=== PATIENT | female | born 1960 | race Caucasian/White ===

== ENCOUNTER → 2017-09-25 | Outpatient (REF) | payer OTHER | LOC: M SFHCWAGY 16:33 | DX: Z12.4 Encounter for screening for malignant neoplasm of cervix (principal) ==

== ENCOUNTER → 2018-07-12 | Outpatient (REF) | payer OTHER | LOC: M SFHCLERA 17:54 | PROVIDERS: ATTEND Nurse Practitioner Family | DX: R39.9 Unspecified symptoms and signs involving the genitourinary system (principal) ==

== ENCOUNTER 2018-09-04 06:42 | Day surgery (SDC) | payer OTHER ==
[~2018-09-04] VITALS: Ht 167.6 cm; Wt 83.9 kg
[~2018-09-04 06:42] MED LIST: AMLO10TA5 PO; LEVO25TA5 PO; PARO25TA PO; PROP40TA62 PO; THYR30TA PO; VITATAB73 PO; dandelion root PO
[2018-09-04] MEDS ORDERED: fentaNYL 100 MCG/2 ML INJECTION (J3010) As Ordered ONE (06:48)
[2018-09-04] MEDS ORDERED: MIDAZOLAM INJ 2 MG/2 ML VIAL (J2250) As Ordered ONE (06:49)
[2018-09-04] MEDS ORDERED: LIDOCAINE 2% W/EPIN INJ 20ML **PRES FREE As Ordered ONE (06:49)
[2018-09-04] MEDS ORDERED: SODIUM BICARBONATE 8.4% INJ 50MEQ 50 ML VIAL As Ordered ONE (06:50)
[2018-09-04] MEDS ORDERED: CIPROFLOXACIN 0.3% OPHTH OINTMENT As Ordered ONE (06:50)
[2018-09-04] MEDS ORDERED: ONDANSETRON 4MG/2ML VIAL (J2405) As Ordered ONE (06:56)
[2018-09-04] MEDS ORDERED: LIDOCAINE 3.5 % 1ML OPHTH TOPICAL GEL OU ONE (07:00)
[2018-09-04] MEDS ORDERED: POVIDONE-IODINE 5% OPHTH PREP SOL 30ML As Ordered ONE (07:37)
[2018-09-04] MEDS ORDERED: PROPOFOL 200 MG/20 ML VIAL As Ordered ONE (07:53)
[2018-09-04 10:00] VITALS: BP 145/76
--- NOTE | 2018-09-04 13:58 | RO ---
DATE OF SURGERY: 09/04/2018 PREOPERATIVE DIAGNOSIS: Bilateral dermatochalasis. POSTOPERATIVE DIAGNOSIS: Bilateral dermatochalasis. PROCEDURE: Bilateral blepharoplasty, upper lids. SURGEON: Kathie Mccullough MD YARD CALLER: None. COMPLICATIONS: None. DESCRIPTION OF PROCEDURE: Procedure in detail: The patient was brought to the operating room and laid in supine position. The eye was prepped and draped in a sterile fashion for upper eyelid surgery. Upper face was prepared in its entirety. Both upper lids were then marked with a sterile marker along the lines of intended skin excisions, following which both upper lids were infiltrated with 2% lidocaine with 1:100,000 epinephrine. The patient was observed for a few minutes, following which electrocautery was used to dissect and remove the premarked skin from the right upper lid. Deeper dissection was then carried out with the help of the electrocautery while hemostasis was obtained with the same. Medial and lateral fat pads were identified and then cauterized at the base and removed. 6-0 Vicryl suture was used to bring the deeper layers together, followed by closure of the skin using 6-0 nylon suture. Exactly the same procedure was repeated for the left upper lid. At the end of the case, ice packs were applied, and the patient was returned to the recovery room after Ciloxan ointment was placed. The usual instructions were given for postoperative care in the recovery room.
== END 2018-09-04 10:10 | disposition home or self-care (01) ==
LOC: M SDC 06:42
PROVIDERS: ATTEND Ophthalmology
DX: H02.831 Dermatochalasis of right upper eyelid (principal); H02.834 Dermatochalasis of left upper eyelid; I10 Essential (primary) hypertension; E03.9 Hypothyroidism, unspecified; K58.8 Other irritable bowel syndrome; F32.9 Major depressive disorder, single episode, unspecified; Z87.891 Personal history of nicotine dependence; Z79.899 Other long term (current) drug therapy; Z88.5 Allergy status to narcotic agent
CPT/HCPCS: 15822; 88302; J2250; J2405; J3010

== ENCOUNTER → 2018-09-26 | Outpatient (REF) | payer OTHER | LOC: M SFHCWAGY 14:27 | PROVIDERS: ATTEND Nurse Practitioner Women's Health | DX: Z12.4 Encounter for screening for malignant neoplasm of cervix (principal) ==

== ENCOUNTER → 2019-10-13 | Outpatient (REF) | payer OTHER ==
[~2019-10-13] MED LIST changes: -PARO25TA PO; +PARO25TA8 PO
== END ==
LOC: M SFHCWAGY 17:53
PROVIDERS: ATTEND Nurse Practitioner Women's Health
DX: Z12.4 Encounter for screening for malignant neoplasm of cervix (principal); Z01.419 Encounter for gynecological examination (general) (routine) without abnormal findings

== ENCOUNTER → 2020-01-22 | Outpatient (CLI) | payer OTHER ==
[~2020-01-22] MED LIST changes: -AMLO10TA5 PO; +AMLO1TAB25 PO
--- NOTE | 2020-01-22 14:59 | RADONC.CN ---
Radiation Oncology Hx/Consult Radiation Oncology Consult Date of Service: Jan 22, 2020 Pt Identifier Kimberly Rojas is a 59 year old female with a history of pT1cN0(sn)M0 ER/NM+ HER2- Gr 3 IDC of the right lower inner quadrant breast. She underwent lumpectomy and SLNB on 12/25/19. She is seen today for consideration of adjuvant RT. Diagnosis/Treatment History Oncologic History September 2019 noted lump in right breast on self-exam 12/08/19 [facility] mammogram and US showing 4:00 right breast lesion 1.4 cm. Biopsy showing IDC ER/NM+ HER2- 12/25/[address] Ferrari pT1cN0(sn)M0 stage IA, margins negative, closest 2.5mm inferior Oncotype score 17 Interval History Feels well, works as a teacher. No pain in the right breast, no swelling in the right arm. No impaired ROM. Appetite good, weight and energy levels stable. Has a special needs child. Stressed about the possibility of being out of work for treatment. Past Medical History: Menses @ [age] @ 1st No OCP or HRT No IVF Post menopausal @ 54 Tubal ligation Past Surgical History: As above Family History: Paternal aunt with breast cancer Social History: Former smoker 30+ pk year Drinks 1-2 alcoholic beverags per week Exposed to lead and other petroleum products through husbands occupation Allergies / Meds Allergies: Coded Allergies: codeine (Verified Allergy, Unknown, hives, 08/28/18) morphine (Verified Allergy, Unknown, hives, 08/28/18) Home Meds Reported Medications Vitamin B Complex (Vitamin B Complex) 1 Each Tablet, 1 TAB PO DAILY, TAB 08/28/18 [dandelion root] No Conflict Check, 1 TAB PO BID 08/28/18 Thyroid (Nature-Throid) 32.5 Mg Tablet, 60 MG PO DAILY, TAB 08/28/18 Amlodipine Besylate (Amlodipine Besylate) 10 Mg Tablet, 10 MG PO DAILY, TAB 08/28/18 Paroxetine HCl (Paroxetine ER) 25 Mg Tab.er.24h, 25 MG PO DAILY, TAB 08/28/18 Levothyroxine Sodium (LEVOTHYROXINE SODIUM) 25 Mcg Tablet, 25 MCG PO DAILY, TAB 08/28/18 Propranolol HCl (Propranolol HCl) 40 Mg Tablet, 40 MG PO DAILY 08/28/18 Review of Systems Constitutional: Denies: Chills, Fever, Night Sweats Eyes: Denies: Pain, Vision change HEENT: Denies: Head Aches, Dysphagia, Sore Throat Skin: Denies: Rash, Lesions, Bruising Pulmonary: Denies: Dyspnea, Cough Cardiovascular: Denies: Chest Pain, Palpitations, Edema Breast: Denies: New Breast Lumps / Masses, Nipple Retraction, Nipple Discharge, Breast Skin Changes, Breast Pain or Tenderness, Other Breast Complaints Gastrointestinal: Denies: Nausea, Vomiting, Abdominal Pain, Diarrhea Genitourinary: Denies: Dysuria, Frequency, Incontinence Hematologic: Denies: Bruising, Petecchia, Enlarged Lymph Nodes Musculoskeletal: Denies: Neck pain, Back pain Neurological: Denies: Weakness, Numbness, Incoordination Psych: Reports: Mood Normal; Denies: Memory Issues, Thoughts of Self Harm Vital Signs Ht 66" Wt 181lb BMI 29 T 98 P 62 RR 18 BP 130/72 O2 96% Pain 0 Fatigue 1 General Exam: Positive: Alert, Cooperative, No Acute Distress Eye Exam: Positive: PERRLA, EOMI ENT EXAM: Positive: Atraumatic Neck Exam: Positive: Supple; Negative: Lymphadenopathy Chest Exam: Positive: Clear to auscultation, Normal air movement Heart Exam: Positive: Rate Normal, Regular Rhythm Breast Exam: Positive: Symmetric Bilaterally, Other Breast Findings (Well healed right infra-areolar lumpectomy incision. Palpable seroma behind incision. No axillary adenopathy BL.); Negative: Lumps or Masses, Nipple Retraction, Nipple Discharge, Skin Changes Abdomen Exam: Positive: Normal bowel sounds, Soft; Negative: Tenderness Extremity Exam: Negative: Edema Skin Exam: Positive: Nl turgor and temperature Neuro Exam: Positive: Normal Gait, Normal Speech, Cranial Nerves 3-12 NL Psych Exam: Positive: Mental status NL, Mood NL; Negative: Anxiety Diagnostic and Laboratory Diagnostic Review Radiologic images, relevant labs and pathology reports were personally reviewed and discussed with Ms. Rojas. Assessment and Plan Impression Ms. Rojas is a 59 year old female with a history of pT1cN0(sn)M0 ER/NM+ HER2- Gr 3 IDC of the right lower inner quadrant breast. She underwent lumpectomy and SLNB on 12/25/19. She is seen today for consideration of adjuvant RT. Stage pT1cN0(sn)M0 ER/NM+ HER2- Gr 3 stage IA right breast cancer Performance Status ECOG 0 Plan We had an extensive discussion with Ms. Rojas regarding the diagnosis at hand and available therapeutic options. She is doing well postoperatively. She prioritizes minimal disruption in her home/work schedules. She meets all APBI acceptability criteria based on her pathology. I discussed partial breast radiation to the tumor bed with margin and offered her 2 schedules, 40 Gy in 15 fractions as per [facility] LOW, versus 26 Gy in 5 fractions as per the recent FAST FORWARD study. I explained that the 15 fraction regimen has more mature follow up but that all initial toxicity and 5 year oncologic outcomes are similar between the two based on FA[facility] FORWARD which compared them [id number]. She has selected the 26 Gy in 5 fraction regimen, which I think is an excellent choice. I will treat her supine, most likely using photons (electrons a less likely possibility), and a daily kV x-ray pair for localization. We discussed the logistics of receiving radiation therapy in detail including the need for a 1-time planning session. After discussing the risks, benefits and alternatives to radiation therapy, Ms. Rojas was amenable to pursuing radiotherapy. All questions were answered to the patient's satisfaction. We instructed the patient that if there were any questions,concerns or changes in clinical status in the interim to contact us. Recommendations Partial breast radiation 26 Gy in 5 fractions per FAST FORWARD (Lancet 2019) Simulation in the coming week ADRIANE DE LA ROSA MD Jan 22, 2020 14:58
== END ==
LOC: M ONCR 12:55
PROVIDERS: ATTEND General Practice
DX: C50.311 Malignant neoplasm of lower-inner quadrant of right female breast (principal)

== ENCOUNTER → 2020-01-29 | Outpatient (CLI) | payer OTHER ==
--- NOTE | 2020-02-06 15:23 | DEXA ---
AP SPINE L1 - L4 1.412 1.8 2.9 LT FEMUR TOTAL 1.260 2.0 2.9 LT NECK 1.184 1.1 2.3 RT FEMUR TOTAL Right hip replaced. RT NECK TOTAL BODY TOTAL OTHER COMMENTS: Normal bone densitometry of the spine. Normal bone densitometry of the left hip. FOLLOW-UP: Recommendation for the next bone density exam: 5 years. TALI
== END ==
LOC: M WHC 12:59
PROVIDERS: ATTEND Internal Medicine Hematology & Oncology
DX: C50.311 Malignant neoplasm of lower-inner quadrant of right female breast (principal)

== ENCOUNTER 2020-02-13 15:51 | Outpatient (RCR) | payer OTHER | END 2020-02-14 | LOC: M ONCR 15:51 | PROVIDERS: ATTEND General Practice | DX: C50.311 Malignant neoplasm of lower-inner quadrant of right female breast (principal) ==

== ENCOUNTER → 2020-07-28 | Outpatient (CLI) | payer OTHER ==
[~2020-07-28] MED LIST changes: +BLAC1CAP2 PO; +CALC-362 PO; +CVS1CAP2 PO; +FISH1000 PO; +MULTCHW12 PO
--- NOTE | 2020-07-28 16:07 | RADONC ---
Radiation Oncology Hx/FUP Radiation Oncology Hx/FUP Date of Service: Jul 28, 2020 Pt Identifier Kimberly Rojas is a 59 year old female seen for a followup visit today at the department of radiation oncology for a history of pT1cN0(sn)M0 ER/OH+ HER2- Gr 3 IDC of the right lower inner quadrant breast. She underwent lumpectomy and SLNB on 12/25/19. She completed adjuvant PBI 26 Gy in 5 fractions on 02/13/20. She has been taking an AI since then. Diagnosis/Treatment History Oncologic History September 2019 noted lump in right breast on self-exam 12/08/19 BL mammogram and US showing 4:00 right breast lesion 1.4 cm. Biopsy showing IDC ER/OH+ HER2- 12/25/[address] Ferrari pT1cN0(sn)M0 stage IA, margins negative, closest 2.5mm inferior Oncotype score 17 02/09/20-02/13/20 Adjuvant PBI 26 Gy in 5 fractions (FAST FORWARD regimen) 02/15/20- AI first letrozole, then exemestane Interval History Kimberly reports she started letrozole and had a bad reaction, made her tired and mood changes, she was switched to exemestane and this has been much more tolerable. She has preserved energy and appetite. No pain or tenderness in the right breast. She has no skin concerns. She has mammograms scheduled for December 2020. She reports that she had no discernible skin reaction after completing RT. Current Therapy Exemestane Stage pT1cN0(sn)M0 ER/OH+ HER2- Gr 3 stage IA right breast cancer Social History: Former smoker 30+ pk year Drinks 1-2 alcoholic beverags per week Exposed to lead and other petroleum products through husbands occupation Allergies / Meds Allergies: Coded Allergies: codeine (Verified Allergy, Unknown, hives, 08/28/18) morphine (Verified Allergy, Unknown, hives, 08/28/18) Home Meds Reported Medications Elderberry Fruit and Flower (Black Elderberry 575 mg Cap) 1 Each Capsule, 1 CAP PO, CAP 07/28/20 Calcium Carbonate/Vitamin D3 (Calcium 500 mg Chewable Tablet) 1 Each Tab.chew, 500 MG PO, CHW 07/28/20 Lactobacillus Combo No.10 (Probiotic) 1 Each Capsule, 1 TAB PO DAILY for 30 Days, #30 TAB 07/28/20 Folic Acid/Multivit-Min/Lutein (Multi-Vitamin Gummies) 1 Each Tab.chew, 1 CHW PO 07/28/20 [place]-3 Fatty Acids/Fish Oil (Fish Oil 1,000 mg Capsule) 1 Each Capsule, 1 CAP PO DAILY for 30 Days, #30 CAP 07/28/20 Amlodipine Besylate (Amlodipine Besylate) 10 Mg Tablet, 10 MG PO DAILY, TAB 08/28/18 Paroxetine HCl (Paroxetine ER) 25 Mg Tab.er.24h, 25 MG PO DAILY, TAB 08/28/18 Levothyroxine Sodium (LEVOTHYROXINE SODIUM) 25 Mcg Tablet, 25 MCG PO DAILY, TAB 08/28/18 Propranolol HCl (Propranolol HCl) 40 Mg Tablet, 40 MG PO DAILY 08/28/18 Discontinued Reported Medications Vitamin B Complex (Vitamin B Complex) 1 Each Tablet, 1 TAB PO DAILY, TAB 08/28/18 [dandelion root] No Conflict Check, 1 TAB PO BID 08/28/18 Thyroid (Nature-Throid) 32.5 Mg Tablet, 60 MG PO DAILY, TAB 08/28/18 Review of Systems Review of Systems Constitutional: Denies: Chills, Fever, Fatigue Eyes: Denies: Pain HEENT: Denies: Head Aches Skin: Denies: Rash Breast: Denies: New Breast Lumps / Masses, Nipple Retraction, Nipple Discharge, Breast Skin Changes, Breast Pain or Tenderness, Other Breast Complaints Pulmonary: Denies: Dyspnea Cardiovascular: Denies: Chest Pain, Edema Hematologic: Denies: Bruising Musculoskeletal: Denies: Neck pain, Back pain Neurological: Denies: Weakness, Numbness Psych: Reports: Mood Normal Physical Examination Vital Signs Wt 198 lbs T 98 P 63 RR 18 BP 141/81 O2 96% Pain 0 Fatigue 1 General Exam: Positive: Alert, Cooperative, No Acute Distress Eye Exam: Positive: PERRLA, EOMI ENT EXAM: Positive: Atraumatic Neck Exam: Positive: Supple; Negative: Lymphadenopathy Chest Exam: Positive: Clear to auscultation Heart Exam: Positive: Rate Normal Breast Exam: Positive: Symmetric Bilaterally, Other Breast Findings (There is palpable fibrosis in the medial lower quadrant of the right breast. This is non tender. There are no masses or axillary adenopathy BL. ); Negative: Lumps or Masses, Nipple Retraction, Nipple Discharge, Skin Changes Abdomen Exam: Positive: Soft Extremity Exam: Negative: Edema Skin Exam: Positive: Nl turgor and temperature Neuro Exam: Positive: Normal Gait, Normal Speech, Cranial Nerves 3-12 NL Psych Exam: Positive: Mental status NL Diagnostic and Laboratory Diagnostic Review Radiologic images, relevant labs and pathology reports were personally reviewed and discussed with Ms. Rojas. Assessment and Plan Impression Assessment Ms. Rojas is a 59 year old female with a history of pT1cN0(sn)M0 ER/OH+ HER2- Gr 3 IDC of the right lower inner quadrant breast. She underwent lumpectomy and SLNB on 12/25/19. She completed adjuvant PBI 26 Gy in 5 fractions on 02/13/20. She has been taking an AI since then. She is doing well. She has ongoing medical oncology follow up at [facility]. She has been tolerating exemestane. She has some palpable fibrosis at the treated site but this is not painful or tender. There are no overlying skin sequelae or hyperpigmented patches. She is very satisfied overall. She has mammography scheduled for December 2020. Given she is so closely followed and is without any residual side effects from RT I will see her again in 12 months time. Performance Status ECOG 0 Plan Ms. Rojas was encouraged to call with questions or concerns in the interim period. Billing Statement Total time of [20] minutes was spent preparing for the visit [1], obtaining HPI [4], examining the patient [2], reviewing diagnostic tests [1], discussing management options [5], coordinating care [0], and writing this note [7]. ADRIANE DE LA ROSA MD Jul 28, 2020 16:07
== END ==
LOC: M ONCR 14:59
PROVIDERS: ATTEND General Practice
DX: C50.311 Malignant neoplasm of lower-inner quadrant of right female breast (principal)

== ENCOUNTER → 2021-08-03 | Outpatient (CLI) | payer OTHER ==
[~2021-08-03] MED LIST changes: +PARO25TA5 PO; -PARO25TA8 PO
== END ==
LOC: M ONCR 15:00
PROVIDERS: ATTEND Radiology Radiation Oncology
DX: C50.311 Malignant neoplasm of lower-inner quadrant of right female breast (principal)

== ENCOUNTER → 2022-02-24 | Outpatient (CLI) | payer OTHER, SELFPAY | LOC: M WHC 14:18 | PROVIDERS: ATTEND Nurse Practitioner Adult Health | DX: C50.311 Malignant neoplasm of lower-inner quadrant of right female breast (principal) ==

== ENCOUNTER → 2022-03-06 | Outpatient (REF) | payer OTHER | LOC: M PLALAB 10:04 | PROVIDERS: ATTEND Nurse Practitioner Family | DX: Z12.4 Encounter for screening for malignant neoplasm of cervix (principal) ==

== ENCOUNTER → 2022-05-25 | Outpatient (REF) | payer OTHER | LOC: M SFHCDERM 14:00 | PROVIDERS: ATTEND Nurse Practitioner Family | DX: D22.5 Melanocytic nevi of trunk (principal); L57.0 Actinic keratosis ==

== ENCOUNTER → 2023-03-19 | Outpatient (REF) | payer OTHER | LOC: M SFHCWAGY 10:23 | PROVIDERS: ATTEND Nurse Practitioner Family | DX: Z12.4 Encounter for screening for malignant neoplasm of cervix (principal) | CPT/HCPCS: 87624; G0123 ==